=== PATIENT | female | born 1985 | race Caucasian/White ===

== ENCOUNTER 2020-09-23 09:44 | Outpatient (CLI) | payer BC, SELFPAY ==
[2020-09-23 10:26] LABS: Hematocrit 40.8 % (37.0-47.0); Hemoglobin 13.6 g/dL (12.0-15.0)
== END 2020-09-23 09:45 | disposition home or self-care (01) ==
PROVIDERS: PCP Internal Medicine; Visit Provider Obstetrics & Gynecology
DX: N89.9 Noninflammatory disorder of vagina, unspecified (principal)
CPT/HCPCS: 36415; 84443; 85014; 85018

== ENCOUNTER → 2020-10-27 01:08 | Outpatient (CLI) | payer BC, SELFPAY ==
[2020-10-27 17:24] LABS: SARS-CoV-2 RNA PCR Negative
== END ==
PROVIDERS: PCP Internal Medicine; Visit Provider Obstetrics & Gynecology
DX: Z01.812 Encounter for preprocedural laboratory examination (principal); Z20.822 Contact with and (suspected) exposure to COVID-19
CPT/HCPCS: C9803; U0003; U0005

== ENCOUNTER 2020-10-27 09:08 | Outpatient (CLI) | payer BC, SELFPAY ==
--- NOTE | 2020-10-27 08:45 | ECG_ITS ---
Measurements Intervals [place] Rate: 64 P: 4 NH: 137 QRS: -25 QRSD: 91 T: 29 QT: 417 QTc: 433 Interpretive Statements SINUS RHYTHM LEFT VENTRICULAR HYPERTROPHY AND ST-T CHANGE POOR R WAVE PROGRESSION, ANTERIOR LEADS MINIMAL Q WAVES- HIGH LATERAL LEADS BASELINE ARTIFACT- I, II, III, AVR, AVL, AVF BORDERLINE ECG Electronically Signed On 10-27-2020 10:14:08 CDT by Carlos Morales D.O.
[2020-10-27 10:08] LABS: Anion Gap 11 mmol/L (8-16); Blood Urea Nitrogen 9 mg/dL (7-17); Calcium 9.7 mg/dL (8.4-10.2); Carbon Dioxide 31 mmol/L (22-30); Chloride 99 mmol/L (98-107); Estimated Glomerular Filt Rate > 60; Glucose 105 mg/dL (65-105); Potassium 3.2 mmol/L (3.4-5.0); Sodium 141 mmol/L (137-145)
== END 2020-10-27 09:09 | disposition home or self-care (01) ==
LOC: ANHSURGERY 09:11
PROVIDERS: Anesthesiology; PCP Internal Medicine; Visit Provider Obstetrics & Gynecology
DX: Z01.818 Encounter for other preprocedural examination (principal); I10 Essential (primary) hypertension; Z79.899 Other long term (current) drug therapy
CPT/HCPCS: 36415; 80048; 93005

== ENCOUNTER 2020-10-30 00:08 | Day surgery (SDC) | payer BC, SELFPAY ==
[2020-10-26 10:24] VITALS: BMI 34.5
--- NOTE | 2020-10-28 06:36 | PM.IMHP ---
H&P: HPI History of Present Illness Date/Time: 10/28/20 06:36 35-year-old 1 para 1 admitted for laparoscopic tubal ligation / hysteroscopy / dilatation curettage/endometrial ablation. She has complaints of heavy bleeding and desires permanent and irreversible sterilization. She had trouble with an IUD. She declines pills patches implants or injections. Risks and benefits and per minutes were reviewed. She had all questions answered asked to proceed Chief Complaint: desires permanent sterilization and excessive heavy bleeding Review of Systems Review of Systems: All systems reviewed & are unremarkable except as noted in HPI and below [facility] Social History Social History Smoking status: Never smoker Alcohol intake: current Substance use: never Substance use type: does not use Additional living arrangements comments: SON Spiritual care concerns: No Meds Home Medications and Allergies Home Medications Medication Instructions Recorded Confirmed Type alprazolam 0.25 mg PO BID PRN 10/26/20 10/26/20 History duloxetine 60 mg PO DAILY 10/26/20 10/26/20 History hydrochlorothiazide 25 mg PO DAILY 10/26/20 10/26/20 History Allergies Allergy/AdvReac Type Severity Reaction Status Date / Time No Known Allergies Allergy Verified 10/26/20 10:23 Exam Const: General: no acute distress Eyes: General: appearance normal, both eyes and all related structures Neck: Neck: supple and no JVD Thyroid: thyroid normal Resp: Effort & Inspection: normal respiratory effort Auscultation: clear to auscultation bilaterally Cardio: Rate: regular rate Rhythm: regular rhythm GI: Inspection: non-distended GI Palp: Yes Soft to palpation, No Tenderness to palpation present (GI) and No Guarding due to palpation present (GI) Auscultation: normal bowel sounds : External Female Exam: normal external appearance Speculum Exam - Vagina: normal appearance of the vagina Speculum Exam - Cervix: normal appearance of the cervix Bimanual exam- vagina & uterus: enlarged Bimanual Exam- Adnexa, other: normal adnexae Skin: General skin exam: no rashes or lesions noted Extrem: General: normal to inspection and no edema Psych: Mental Status: mental status grossly normal Affect: normal affect Assessment and Plan Additional Plan impression: Bleeding and desires permanent sterilization Plan: Laparoscopic tubal ligation /hysteroscopy/ dilatation curettage/endometrial ablation
[2020-10-30] VITALS (11 sets, daily range): BP systolic 123–144; BP diastolic 85–97; PULSE 65–81; RESP 13–22; TEMP 36.2–36.3; O2SAT 93–100
--- NOTE | 2020-10-30 07:21 | WPDHPUPDATE1 ---
History and Physical Update Update Date/Time: 10/30/20 07:21 History and Physical has been reviewed, including an updated exam of the patient. There are NO changes in the patient's condition. Risks, benefits, and alternatives have been discussed and questions answered. Patient agrees to proceed with procedure.
--- NOTE | 2020-10-30 10:34 | P.PNAN_ITS ---
Anes - Initial Pre Proc Eval Procedure: Operation Date: 10/30/20 12:30 Proposed Procedures p Laparoscopic Bilateral Tubal Sterilization With Fallopian Rings, Hysteroscopy Dilatation And Curettage With Holly Ablation - Corwin Esparza MD Date/Time: 10/30/20 10:34 Surgeon: Corwin Esparza MD Pre Op Diagnosis: desires sterilization, menorrhagia Patient Data Age: 35 Gender: F Height: 1.6 m Weight: 88.45 kg Allergies Allergy/AdvReac Type Severity Reaction Status Date / Time No Known Allergies Allergy Verified 10/30/20 10:35 Home Medications Medication Instructions Recorded Confirmed Type alprazolam 0.25 mg PO BID PRN 10/26/20 10/30/20 History duloxetine 60 mg PO DAILY 10/26/20 10/30/20 History hydrochlorothiazide 25 mg PO DAILY 10/26/20 10/30/20 History hydrocodone-acetaminophen 1 tablet PO Q4H PRN #20 tablet 10/30/20 Rx Patient hx anesthesia problems: none Family hx anesthesia problems: none [facility] Past Medical History Medical History (Updated 10/30/20 @ 10:35 by Guilherme Ortiz MD) Anxiety Depression HTN (hypertension) Obesity Social History Social History Smoking status: Never smoker Alcohol intake: current Alcohol use details: RARE Substance use: never Substance use type: does not use Living arrangements: with family Additional living arrangements comments: SON Spiritual care concerns: No Anes - Eval Final PreProcedure Day of Procedure 10/30/20 10:34 Patient weight: overweight Heart: regular rate and rhythm Lungs: clear to auscultation and normal air movement Airway: Mallampati scale class II Neurological: alert and oriented Last oral intake: >/= 8 hours ASA classification: II Emergent: no Anesthetic plan: proceed Anesthesia type and monitoring: general ETT Informed Consent: The patient's anesthetic plan and its attendant risks and benefits were discussed with the patient/family/POA. Questions were solicited and answers provided to the satisfaction of the patient/family/POA.
[2020-10-30] MEDS: KETOROLAC 15 MG/ML VIAL (*BKC) IV PUSH (11:05)
[2020-10-30] MEDS: ACETAMINOPHEN 500 MG TABLET 1000 MG PO (11:05)
[2020-10-30] MEDS: LACTATED RINGERS 1,000 ML 30 ML IV CONT ×2 (11:05→12:59)
--- NOTE | 2020-10-30 12:57 | W.PM.PROC2 ---
Procedure Note - Detailed Date of Procedure 10/30/20 Pre-op Diagnosis desires sterilization, menorrhagia Post-op Diagnosis same Procedure Performed Laparoscopic bilateral tubal ligation with rings/hysteroscopy/dilatation curettage/endometrial ablation Surgeon Corwin Esparza MD Anesthesia general Indications This is a patient who desires permanent sterilization with excessive heavy bleeding Findings Normal-appearing uterus ovaries and tubes. Uterus sounded to 8cm with thick endometrium Description of Procedure Patient was prepped draped in the normal sterile fashion placed in the dorsal lithotomy position. Under excellent general endotracheal anesthesia weighted speculum was placed in the posterior fornix of vagina. Anterior lip of the cervix grasped with a single-tooth tenaculum and the Bowling's cannula inserted to the cervix. The 2 instruments were attached to be used for uterine manipulation. The bladder emptied of clear urine. The weighted speculum was removed. The gloves were changed. An infraumbilical incision made and the Veress needle passed in the abdomen. The abdomen filled with CO2 gas [id number]. The 5mm trocar advanced under direct visualization assuring no injury. Normal-appearing tubes ovaries and uterus were noted as well as appendix and liver edge. The right fallopian tube was grasped with a fallopian tube grasper and the ring placed in midportion. Blanching was seen in like fashion the left fallopian tube was grasped in a good knuckle of tube formed with the ring on the left. Blanching was noted. No other abnormalities were seen in the lower site removed. The gas removed from the abdomen. The trocars removed from the abdomen. After gas was completely emptied of the abdomen. The incisions closed with 4 Monocryl and glue. Attention was turned to the hysteroscopic portion. The uterus sounded to 9cm. Serial dilatation with fragmented dilators performed followed by passage of the 5mm visualizing hysteroscope using normal saline as visualizing medium. Thick endometrium was seen with normal appearing fallopian tube ostia bilaterally. No other abnormalities were seen. The uterus was scraped over the entire 360? until a good grating sound was heard. Following this the endometrial ablation device was placed in the uterus burned for 120seconds. This was then removed and hysteroscope reinserted. An excellent burn was noted in photo documentation undertaken. The instruments removed and the patient was awakened. All sponge, needle, instrument counts were correct. There were no immediate complications Implants Bilateral fallopian tube rings Estimated Blood Loss 5 Drains No Packing No Pathology yes Complications No immediate complications Condition stable Disposition floor
[2020-10-30] MEDS: fentaNYL CITRATE INJ (*CRX) 100 MCG/2 ML VIAL 25 MCG IV PUSH ×4 (13:19→13:41)
[2020-10-30] MEDS: HYDROmorphone HCL INJ (*CRX) 1 MG/ML SYR 0.25 MG IV PUSH ×6 (13:52→14:28)
[2020-10-30] MEDS: oxyCODONE HCL (*CRX) 5 MG TAB IR PO (14:52)
[2020-10-30] MEDS: ONDANSETRON INJ 4 MG/2 ML VIAL IV PUSH (15:02)
== END 2020-10-30 16:00 | disposition home or self-care (01) ==
PROVIDERS: PCP Internal Medicine; Visit Provider Obstetrics & Gynecology
PROC: 0UDB8ZZ Extraction of Endometrium, Via Natural or Artificial Opening Endoscopic (ICD-10-PCS; CPT 58558; principal; 2020-10-30 12:30)
DX: Z30.2 Encounter for sterilization (principal); N92.0 Excessive and frequent menstruation with regular cycle; F41.8 Other specified anxiety disorders; I10 Essential (primary) hypertension
CPT/HCPCS: 58563; 58671; 88305; A4264; A9270; J0330; J1100; J1170; J1885; J2250; J2405; J2704; J3010; J7030; J7120

== ENCOUNTER 2025-02-22 20:59 | Emergency (ER) | payer BC, SELFPAY ==
--- NOTE | ~2025-02-22 | CT_ITS ---
EXAMINATION: CT cervical spine wo con DATE: 02/22/2025 22:49 INDICATION: Neck pain. Injury. TECHNIQUE: Computed tomography (CT) of the cervical spine was performed without intravenous contrast. Automated exposure control and iterative reconstruction technique were employed. The dose-length product was 406.52 mGy-cm. COMPARISON: None FINDINGS: There is kyphosis of cervical spine. Vertebral body heights are normal. There is mildly decreased disc height at C4-C5, C5-C6, and C6-C7. There is multilevel facet joint osteoarthritis, severe bilaterally at C7-T1. There is no neural foraminal stenosis. There is mild central canal stenosis at C3-C4, C4- C5, and C6-C7. IMPRESSION: 1. No fracture. 2. Mild cervical spondylosis. Reviewed, dictated and finalized at location E.
--- NOTE | ~2025-02-22 | CT_ITS ---
EXAMINATION: CT brain wo con DATE: 02/22/2025 22:48 INDICATION: Head injury. TECHNIQUE: Computed tomography (CT) of the head was performed without intravenous contrast. The mA was adjusted according to patient size. Iterative reconstruction technique was employed. The dose-length product was 605.33 mGy-cm. COMPARISON: None FINDINGS: There is no intracranial hemorrhage, acute infarction, or abnormal intracranial mass lesion. The ventricles are normal in size. The orbits are normal. There is mild mucosal thickening in right sphenoid sinus. The mastoid air cells are normal. IMPRESSION: 1. Normal brain. Reviewed, dictated and finalized at location E. IMPRESSION: 1. Normal brain.
--- OUTSIDE RECORDS SUMMARY | 2025-02-22 21:01 | XMS_ITS | Encounter Summary ---
Author Organization [facility] Address [address] [place] [address] Phone Care Team Providers Care Machine Operations Supervisor Name Role Phone No, Physician Primary Care Provider [phone] Clinic, Search Consultant X. Primary Care Provider [phone] Anthony Yu MD Primary Care Provider [phone] Macario Degroot MD Unavailable Encounter Details Date Type Department Care Team (Latest Contact Info) Description 01/10/2017 Orders Only [facility] CONVERSION Scanning, Provider Social History Tobacco Use Types Packs/Day Years Used Date Smoking Tobacco: Never Comments Unknown Sex and Gender Information Value Date Recorded Sex Assigned at Not on file Legal Sex Female 10:03 AM CDT Gender Identity Not on file Sexual Orientation Not on file documented as of this encounter Plan of Treatment Not on file documented as of this encounter Procedures Procedure Name Priority Date/Time Associated Diagnosis Comments OBSTETRIC/GYNECOLOGY ULTRASONOGRAPHY REPORT 01/31/2017 10:04 AM CDT OBSTETRIC/GYNECOLOGY ULTRASONOGRAPHY REPORT 01/17/2017 10:03 AM CDT OBSTETRIC/GYNECOLOGY ULTRASONOGRAPHY REPORT 01/13/2017 9:27 AM CDT OBSTETRIC/GYNECOLOGY ULTRASONOGRAPHY REPORT 01/10/2017 10:54 AM CDT documented in this encounter Results * OBSTETRIC/GYNECOLOGY ULTRASONOGRAPHY REPORT (01/31/2017 10:04 AM CDT) Anatomical Region Laterality Modality Ultrasound us Provider Scanning IMG OB US PROCEDURES Final Res ult * OBSTETRIC/GYNECOLOGY ULTRASONOGRAPHY REPORT (01/17/2017 10:03 AM CDT) Anatomical Region Laterality Modality Ultrasound us Provider Scanning IMG OB US PROCEDURES Final Res ult * OBSTETRIC/GYNECOLOGY ULTRASONOGRAPHY REPORT (01/13/2017 9:27 AM CDT) Anatomical Region Laterality Modality Ultrasound us Provider Scanning IMG OB US PROCEDURES Final Res ult * OBSTETRIC/GYNECOLOGY ULTRASONOGRAPHY REPORT (01/10/2017 10:54 AM CDT) Anatomical Region Laterality Modality Ultrasound us Provider Scanning IMG OB US PROCEDURES Final Res ult documented in this encounter Visit Diagnoses Not on filedocumented in this encounter Care Teams Machine Operations Supervisor Relationship Specialty Start Date End Date No, Physician PCP - General 12/23/16 01/19/17 [facility], Search Consultant [address] [place] [address] PCP - General 01/20/17 09/05/18 Anthony Yu MD [facility] [address] [address] PCP - General Internal Medicine 09/06/18 Macario Degroot MD [address] [place] [id number] Consulting Physician Surgery 02/24/24 documented as of this encounter
--- OUTSIDE RECORDS SUMMARY | 2025-02-22 21:01 | XMS_ITS | Clinical Summary ---
Author Organization [facility] Address [address] [place] [address] Care Team Providers Care [facility] Attendant Name Role Phone Anthony Yu MD Primary Care Provider [phone] Macario Degroot MD Unavailable Allergies No known active allergies Medications oxyCODONE-acet aminophen (PERCOCET) 5-325 mg per tabletIndicati ons:Pain Take 1 tablet by mouth every 4 (four) hours as needed for pain 30 tablet 4 Active Additional Information Patient not taking.Reported on 03/06/2024 acetaminophen (TYLENOL) 325 mg tablet Take 2 tablets (650 mg total) by mouth every 6 (six) hours as needed for pain 4 Active docusate sodium (COLACE) 100 mg capsuleIndicat ions:constipat ion Take 1 capsule (100 mg total) by mouth daily as needed for constipation 20 capsule 4 Active Additional Information Patient not taking.Reported on 03/06/[address] (CYMBALTA) 60 mg capsule TAKE 1 CAPSULE(60 MG) BY MOUTH DAILY 30 capsule 5 Active busPIRone (BUSPAR) 15 mg tablet TAKE 1 TABLET(15 MG) BY MOUTH THREE TIMES DAILY 90 tablet 5 Active valsartan-hydr ochlorothiazid e (DIOVAN-HCT) 160-25 mg per tablet Take 1 tablet by mouth daily 30 tablet 5 025 Active valsartan-hydr ochlorothiazid e (DIOVAN-HCT) 160-25 mg per tablet TAKE 1 TABLET BY MOUTH DAILY 30 tablet 3 4 025 Discontin ued(Reord er) Active Problems Problem Noted Date Diagnosed Date Acute appendicitis with localized peritonitis Assessment & Plan (03/06/2024 2:16 PM CDT): Status post appendectomy. Patient is stable and she has follow-up with the surgeon Acute appendicitis, unspecified acute appendicit is type 02/21/2024 Anxiety 02/21/2024 Constipation 02/21/2024 Pain of right upper extremity 03/06/2023 Assessment & Plan (07/06/2023 4:49 PM MATTRESS FILLER): Resolved Assessment & Plan (03/06/2023 5:54 PM CDT): Patient with pain and tenderness in the right upper arm area. Could be muscle sprain. Advised to apply ice. Will start her on meloxicam 15 mg daily. Patient to call us in 1 month for persistent symptoms. Obesity (BMI 30-39.9) 11/02/2022 Assessment & Plan (01/04/2024 5:18 PM CDT): Continue low calorie diet and exercise on regular basis. We talked about medications. She likes to check with her insurance and see if it will be covered. We talked briefly about bariatric surgery and she wants to think about that as well. Assessment & Plan (11/02/2022 4:43 PM CDT): Continue low calorie diet and exercise on regular basis. We talked about medications. She likes to check with her insurance and see if it will be covered. We talked briefly about bariatric surgery and she wants to think about that as well. Sore throat 07/26/2022 Assessment & Plan (07/26/2022 12:34 PM CDT): Patient with strep throat. Will start her on amoxicillin 500 mg 3 times daily for 10 days and she will call for persistent symptoms. Hypertension, essential 07/05/2022 Assessment & Plan (01/04/2024 5:18 PM CDT): Controlled on Diovan hydrochlorothiazide Assessment & Plan (07/06/2023 4:48 PM MATTRESS FILLER): Controlled on Diovan hydrochlorothiazide Assessment & Plan (03/06/2023 5:53 PM CDT): Resume medications and low-salt diet and encouraged weight loss Assessment & Plan (11/02/2022 4:42 PM CDT): Continue current medications. Discussed low-salt diet. Discussed exercise on regular basis. Will continue to monitor Assessment & Plan (07/05/2022 12:30 PM MATTRESS FILLER): Stop hydrochlorothiazide and start Diovan hydrochlorothiazide 160-25 mg daily for better control of hypertension. Discussed low-salt diet and weight loss. Advised to keep follow-up appointments. History of kidney stones 12/05/2019 Assessment & Plan (12/05/2019 4:19 PM CDT): Patient had right kidney stone in August 2019. She is currently asymptomatic. 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 Vraylar was expensive so she did not start the medication. Patient said that she takes BuSpar 3 times daily and she feels much better. We will refill the medication Assessment & Plan (07/06/2023 4:49 PM MATTRESS FILLER): Patient with persistent symptoms of depression and anxiety. We will add Vraylar 1.5 mg daily. Continue duloxetine and BuSpar and call for persistent symptoms Assessment & Plan (03/06/2023 5:53 PM CDT): Continue current medications Assessment & Plan (11/02/2022 4:42 PM CDT): Controlled on BuSpar and duloxetine Assessment & Plan (07/05/2022 12:30 PM MATTRESS FILLER): Controlled on BuSpar and duloxetine Assessment & Plan (09/24/2021 9:19 AM CDT): Patient feels good with the Cymbalta but she has periods of anxiety. She said Xanax did not work. We will try BuSpar 15 mg b.i.d. p.r.n.. She will call for persistent symptoms Assessment & Plan (11/05/2020 2:42 PM CDT): Controlled on duloxetine and she takes Xanax as needed with good relief. Assessment & Plan (08/05/2020 2:38 PM CDT): Controlled on Cymbalta and will add Xanax 0.25 mg daily p.r.n. and side effects were explained. Assessment & Plan (04/02/2020 4:50 PM MATTRESS FILLER): Will stop Wellbutrin because of side effects including hypertension and headache. Patient will be started on Cymbalta 60 mg daily and she was advised to seek counseling and will evaluate her again in 1 month Assessment & Plan (03/05/2020 5:01 PM CDT): Will stop Viibryd because of weight gain. We will start her on Wellbutrin 300 mg daily and evaluate her again in 1 month. Side effects were explained. Hopefully that will help her lose few lb. Assessment & Plan (02/05/2020 3:53 PM CDT): We will stop Cymbalta and start her on Viibryd 40 mg daily and side effects were explained. Will evaluate her again in 1 month. Assessment & Plan (01/06/2020 3:03 PM CDT): She will continue with Cymbalta. She will call if she has any problem with the medication. Will evaluate her again in 1 month. Assessment & Plan (12/05/2019 4:20 PM CDT): Patient has recurrent depression. She will be started on Effexor XR 37.5 mg daily and will evaluate her again in 1 month. Side effects were explained. Acanthosis nigricans 09/06/2018 Assessment & Plan (12/05/2019 4:19 PM CDT): Resolved Assessment & Plan (09/14/2018 1:03 PM CDT): The most likely cause of her symptoms is the hormonal therapy. It was discontinued by the client services specialist. The patient was advised to continue to follow up on that and she is to call us in a few months if the lesions persist Assessment & Plan (09/06/2018 11:57 AM CDT): The patient gained a lot of weight in short period of time which could explain the symptoms. She will follow up with her client services specialist for possible removal of the IUD. Will obtain blood work to rule out other etiologies of the condition and see her again in few days Elevated blood pressure reading 09/06/2018 Assessment & Plan (09/24/2021 9:19 AM CDT): Continue low-salt diet and encouraged more weight loss with diet and exercise Assessment & Plan (11/05/2020 2:42 PM CDT): Stable and will continue hydrochlorothiazide. She will continue to watch her salt. She will continue to exercise on regular basis Assessment & Plan (08/05/2020 2:38 PM CDT): Continue hydrochlorothiazide Assessment & Plan (04/08/2020 9:04 AM MATTRESS FILLER): Blood pressure is mildly elevated. We will start her on hydrochlorothiazide 25 mg daily and we discussed low-salt diet and increasing water intake. Advised to work harder on losing weight. Will evaluate her again in few weeks. Assessment & Plan (04/02/2020 4:50 PM MATTRESS FILLER): Advised low-salt diet and weight loss. Blood pressure is high her which could be secondary to Wellbutrin Assessment & Plan (02/05/2020 3:53 PM CDT): Continue low-salt diet and exercise and encouraged weight loss Assessment & Plan (01/06/2020 3:02 PM CDT): Blood pressure is slightly elevated. We discussed low-salt diet. Patient lost weight and we encouraged to lose more weight. We discussed the ideal weight for her. Assessment & Plan (12/05/2019 4:19 PM CDT): Blood pressure is stable without medications. Continue low-salt diet Assessment & Plan (09/14/2018 1:04 PM CDT): Blood pressure improved with diet and weight loss and she was encouraged to continue with that Assessment & Plan (09/06/2018 11:59 AM CDT): Discussed low-salt diet and exercise on regular basis about 5 days a week for about 30 minutes each day. We discussed weight loss. Will continue to monitor Immunizations Immunization Administration Dates Next Due Influenza, Quadrivalent, Spl it, Preservative Free, Intramuscular 03/06/2023,07/05/2022,02/05/2020,02/19,02/07/2017 Influenza, Trivalent, Preser vative Free, Intramuscular 02/24/2024 Influenza, Unspecified 02/07/2017 Pfizer SARS-CoV-2 Monovalent Vaccination (12+ Yrs) PURPLE 08/22/2020,08/01/2020 Pneumococcal Polysaccharide PPV23 02/19/2019 Tdap 11/02/2022,02/07/2017,08/14/2015 Surgical History Surgery Date Site/Laterality Comments LOOP ELECTROSURGICAL EXCISION PROCEDURE Cervical Loop Electrosurgical Excision (LEEP) - 2005 (Added by TW Conv) TUBAL LIGATION 05/15/2020 - 05/14/2021 APPENDECTOMY 02/21/2024 Medical History Medical History Date Comments Other abnormal findings on a ntenatal screening of mother NST (non-stress test) nonrea ctive - (Added by TW Conv) Obesity complicating M aternal morbid obesity, antepartum - (Added by TW Conv) Supervision of high-risk High-risk supervision - (Added by TW Conv) Hypertension History of chicken pox Family History Medical History Relation Name Comments Diabetes Mother Cynthia Barajas Throat cancer Sister Throat cancer - (Added by TW Conv) Relation Name Status Comments Father Alive Mother LuMalik Parsrobin Alive Sister Social History Tobacco Use Types Packs/Day Years Used Date Smoking Tobacco: Never Smokeless Tobacco: Never Tobacco Cessation:Counseling Given: Not Answered Alcohol Use Standard Drinks/Week Comments Not Currently 0 (1 standard drink = 0.6 oz pur e alcohol) [facility] Utilities Answer Date Recorded In the past 12 months has e electric, gas, oil, or water company threatened to shut off services in your home? No 02/22/2024 Social Connection and Isolation Panel Answer Date Recorded In a typical week, how many times do you talk on the phone with family, friends, or neighbors? More than three times a week 02/22/2024 How often do you get togethe r with friends or relatives? More than three times a week 02/22/2024 How often do you attend chur ch or mosque services? Never 02/22/2024 Do you belong to any clubs o r organizations such as uatsdin groups, unions, fraternal or athletic groups, or school groups? No 02/22/2024 How often do you attend meet ings of the clubs or organizations you belong to? Never 02/22/2024 Are you , , di vorced, , never , or living with a partner? Never 02/22/2024 AUDIT-C Answer Date Recorded Q1: How often do you have a drink containing alcohol? Never 03/06/2024 Q2: How many drinks containi ng alcohol do you have on a typical day when you are drinking? Patient does not drink Q3: How often do you have si x or more drinks on one occasion? Never 03/06/2024 Overall Financial Resource Strain (CARDIA) Answe r Date Recorded How hard is it for you to pa y for the very basics like food, housing, medical care, and heating? Not very hard 02/22/2024 PHQ-2 Answer Date Recorded PHQ-2 Total Score (If total score is 3 or more points, staff should administer the PHQ-9) 0 03/06/2024 Hunger Vital Sign Answer Date Recorded Within the past 12 months, y ou worried that your food would run out before you got the money to buy more. Never true 02/22/20 24 Within the past 12 months, t he food you bought just didn't last and you didn't have money to get more. Never true 02/22/2024 PRAPARE - Transportation Answer Date Re corded In the past 12 months, has l ack of transportation kept you from medical appointments or from getting medications? No 02/12 In the past 12 months, has l ack of transportation kept you from meetings, work, or from getting things needed for daily living? No 02/22/2024 Housing Stability Vital Sign Answer Martin e Recorded In the last 12 months, was t here a time when you were not able to pay the mortgage or rent on time? No 02/22/2024 In the past 12 months, how m any times have you moved where you were living? 0 02/22/2024 At any time in the past 12 m [facility], were you homeless or living in a senior living (including now)? No 02/22/2024 Personal Safety Answer Date Recorded Have you ever been in or are you currently in a harmful physical or emotional relationship or is someone making you feel afraid or unsafe? Denies 02/21/2024 Comments Unknown Sex and Gender Information Value Date Recorded Sex Assigned at Not on file Legal Sex Female 10:03 AM CDT Gender Identity Not on file Sexual Orientation Not on file Obstetrics History Last Filed Vital Signs Vital Sign Reading Time Taken Comments Blood Pressure 120/78 03/06/2024 1:50 PM CDT Pulse 78 03/06/2024 1:50 PM CDT Temperature 36.7 C (98 F) 03/06/2024 1:50 PM CDT Respiratory Rate 16 03/06/2024 1:50 PM CDT Oxygen Saturation 98% 03/06/2024 1:50 PM CDT Inhaled Oxygen Concentration - - Weight 89.4 kg (197 lb) 03/06/2024 1:50 PM CDT Height 160 cm (5' 3) 03/06/2024 1:50 PM CDT Body Mass Index 34.9 03/06/2024 1:50 PM CDT Plan of Treatment Health Maintenance Due Date Last Done Comments Breast Cancer Screening-Mammogram 1984 Hepatitis C Screening 1984 Hepatitis B Screening 2002 Regular Well Visit/Exam 18-64 2002 HPV Vaccines (1 - 3-dose SCDM series) 2011 Cervical Cancer Screening 07/29/2018 07/29/2017 Covid-19 Vaccine ( - season) 2025 08/22/2020, 08/01/2020 Influenza Vaccine (#1) 2025 , 03/06/2023, 07/05/2022, Additional history exists Depression Screening 03/06/2025 03/06/2024, 01/04/2024, 07/06/2023, Additional history exists DTaP/Tdap/Td Vaccine (4 - Td or Tdap) 11/02/2032 11/02/2022, 02/07/2017, 08/14/2015 Pneumococcal vaccine <65 Aged Out 02/19/2019 No longer eligible based on patient's age to complete this topic Procedures Procedure Name Priority Date/Time Associated Diagnosis Comments PAP SMEAR WITH HPV Routine 07/29/2017 from Last 3 Months or Most Recently Relevant to Health Maintenance Results * PAP SMEAR WITH HPV (07/29/2017) Pap smear Normal Historical Provider HEALTH MAINTENANCE Final Result from Last 3 Months or Most Recently Relevant to Health Maintenance Insurance Advance Directives For more information, please contact: [phone] * Full Code (Latest Code Status on File) Date Activated Date Inactivated Comments 02/21/2024 2:23 PM 02/24/2024 3:12 PM Care Teams [facility] Attendant Relationship Specialty Start Date End Date Anthony Yu MD [address] [place] [id number] PCP - General Internal Medicine 09/06/18 Macario Degroot MD [address] [address] Consulting Physician Surgery 02/24/24
--- OUTSIDE RECORDS SUMMARY | 2025-02-22 21:01 | XMS_ITS | Clinical Summary ---
Author Organization [facility] Address [address] [place] [address] Care Team Providers Care Route Clerk Name Role Phone None, Provider MD Primary Care Provider Unavaila ble Allergies No known active allergies Medications oxyCODONE-acetamino phen (PERCOCET) 5-325 MG tabletIndications:A cute Pain < 3 Day Supply Take 1-2 tablets by mouth every 6 (six) hours as needed for Pain. Indications: Acute Pain < 3 Day Supply 12 tablet 0 Active tamsulosin 0.4 MG Cap Take 1 capsule (0.4 mg total) by mouth daily. 30 capsule 0 Active ondansetron 4 MG disintegrating tablet Take 1 tablet (4 mg total) by mouth every 8 (eight) hours as needed for Nausea. 15 tablet 0 Active HYDROcodone-acetami nophen 5-325 MG tabletIndications:A cute Pain < 7 Day Supply Take 1 tablet by mouth every 6 (six) hours as needed. Indications: Acute Pain < 7 Day Supply 14 tablet 0 Active Family History Medical History Relation Comments Diabetes Mother Cancer Sister Relation Status Comments Mother Sister Social History Tobacco Use Types Packs/Day Years Used Date Smoking Tobacco: Never Smokeless Tobacco: Never Alcohol Use Standard Drinks/Week Comments Never 0 (1 standard drink = 0.6 oz pur e alcohol) AUDIT-C Answer Date Recorded Frequency of Alcohol Consumption Never 09/08/2019 Average Number of Drinks Not on file 020 Frequency of Binge Drinking Not on file 08/14 Comments Yes Sex and Gender Information Value Date Recorded Sex Assigned at Not on file Legal Sex Female 7:37 PM CDT Gender Identity Not on file Sexual Orientation Not on file Last Filed Vital Signs Vital Sign Reading Time Taken Comments Blood Pressure 133/80 09/10/2019 4:00 PM CDT Pulse 89 09/10/2019 4:00 PM CDT Temperature 36.5 C (97.7 F) 09/10/2019 1:38 PM CDT Respiratory Rate 18 09/10/2019 4:00 PM CDT Oxygen Saturation 100% 09/10/2019 4:00 PM CDT Inhaled Oxygen Concentration - - Weight 88 kg (194 lb) 09/10/2019 1:38 PM CDT Height 160 cm (5' 3) 09/10/2019 1:38 PM CDT Body Mass Index 34.37 09/10/2019 1:38 PM CDT Plan of Treatment Health Maintenance Due Date Last Done Comments Cervical Cancer Screening Pa p Smear (Age 30 to 64) Every 3 Years 1984 Annual Physical 1987 Hepatitis C 2002 DTaP, Tdap and Td Vaccines ( 1 - Tdap) 2003 Hepatitis B Vaccines (1 of 3 - 19+ 3-dose series) 2003 HPV Vaccines (1 - 3-dose SCD M series) 2011 Cervical Cancer Screening Pa p with HPV Testing (Age 30 to 64) Every 5 Years 2014 Cervical Cancer Screening with HPV 2014 Mammogram Screening 2024 COVID-19 Vaccine (2023-2 5 season) 2025 Influenza Adult (#1) 2025 02/07/2017 RSV Immunization or 60+ Years (1 - 1-dose 75+ series) 2059 Meningococcal B Vaccine Aged Out No l onger eligible based on patient's age to complete this topic Meningococcal Vaccine Aged Out No amelia leydi eligible based on patient's age to complete this topic Pneumococcal Vaccine: Pediat rics (0 to 5 Years) and At-Risk Patients (6 to 49 Years) Aged Out No longer eligi ble based on patient's age to complete this topic RSV Immunizations Under 20 Months Aged Out No longer eligible based on patient's age to complete this topic Care Teams Route Clerk Relationship Specialty Start Date End Date None, Provider, PCP - General 09/10/19
--- OUTSIDE RECORDS SUMMARY | 2025-02-22 21:01 | XMS_ITS | Encounter Summary ---
Author Organization [facility] Address [address] [place] [address] Phone Care Team Providers Care Creative Services Producer Name Role Phone Clinic, Inspector [employer]uminum Boat X. Primary Care Provider [phone] Anthony Yu MD Primary Care Provider [phone] Macario Degroot MD Unavailable [phone] Encounter Details Date Type Department Care Team (Latest Contact Info) Description 02/10/2017 Orders Only [facility] CONVERSION Scanning, Provider Social [...] Date/Time Associated Diagnosis Comments OBSTETRIC/GYNECOLOGY ULTRASONOGRAPHY REPORT 03/10/2017 10:02 AM CDT OBSTETRIC/GYNECOLOGY ULTRASONOGRAPHY REPORT 02/10/2017 4:04 PM CDT documented in this encounter Results * OBSTETRIC/GYNECOLOGY ULTRASONOGRAPHY REPORT (03/10/2017 10:02 AM CDT) Anatomical Region Laterality Modality Ultrasound us Provider Scanning IMG OB US PROCEDURES Final Res ult * OBSTETRIC/GYNECOLOGY ULTRASONOGRAPHY REPORT (02/10/2017 4:04 PM CDT) Anatomical Region Laterality Modality Ultrasound us Provider Scanning IMG OB US PROCEDURES Final Res ult documented in this encounter Visit Diagnoses Not on filedocumented in this encounter Care Teams Creative Services Producer Relationship Specialty Start Date End Date Clinic, Inspector [employer] [address] [place] [address] PCP - General 01/20/17 09/05/18 Anthony Yu MD [address] [address] PCP - General Internal Medicine 09/06/18 Macario Degroot MD [address] [place] [id number] Consulting Physician Surgery 02/24/24 documented as of this encounter
--- OUTSIDE RECORDS SUMMARY | 2025-02-22 21:01 | XMS_ITS | Encounter Summary ---
Author Organization [facility] Address [address] [place] [address] Phone Care Team Providers Care Sunglass Clip Attacher Name Role Phone Unknown, Notinfile Primary Care Provider Unavail able No, Physician Primary Care Provider [phone] Clinic, Clinical Research Manager X. Primary Care Provider Anthony Yu MD Primary Care Provider Macario Degroot MD Unavailable [phone] Encounter Details Date Type Department Care Team (Latest Contact Info) Description 11/04/2016 Orders Only [facility] CONVERSION Scanning, Provider Social [...] Date/Time Associated Diagnosis Comments OBSTETRIC/GYNECOLOGY ULTRASONOGRAPHY REPORT 11/04/2016 1:55 PM CDT documented in this encounter Results * OBSTETRIC/GYNECOLOGY ULTRASONOGRAPHY REPORT (11/04/2016 1:55 PM CDT) Anatomical Region Laterality Modality Ultrasound us Provider Scanning IMG OB US PROCEDURES Final Res ult documented in this encounter Visit Diagnoses Not on filedocumented in this encounter Care Teams Sunglass Clip Attacher Relationship Specialty Start Date End Date Unknown, Notinfkrista PCP - General 10/03/16 12/22/16 No, Physician PCP - General 12/23/16 01/19/17 [facility], Clinical Research Manager X. [address] [place] [address] PCP - General 01/20/17 09/05/18 Anthony Yu MD [address] [address] PCP - General Internal Medicine 09/06/18 Macario Degroot MD [address] [place] [address] Consulting Physician Surgery 02/24/24 documented as of this encounter
[2025-02-22 21:03] VITALS: BP 143/92; PULSE 95; RESP 16; TEMP 37.3; O2SAT 100
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
[2025-02-22] MEDS: SODIUM CHLORIDE 0.9% IV 1,000 ML 999 ML IV CONT (22:28)
[2025-02-22] MEDS: METOCLOPRAMIDE HCL INJ 10 MG/2 ML VIAL IV PUSH (22:28)
[2025-02-22] MEDS: dexAMETHasone SOD PHOS INJ 10 MG/ML 1 ML VIAL IM (22:28)
[2025-02-22 23:21] VITALS: BP 130/88; PULSE 84; RESP 16; O2SAT 96
[2025-02-22 23:54] VITALS: BP 124/95; PULSE 88; RESP 17; O2SAT 97
[2025-02-23] MEDS: KETOROLAC 15 MG/ML VIAL (*BKC) IV PUSH
== END 2025-02-23 00:07 | disposition home or self-care (01) ==
PROVIDERS: Emergency Provider Registered Nurse; PCP Internal Medicine
DX: S06.0X0A Concussion without loss of consciousness, initial encounter (principal); S16.1XXA Strain of muscle, fascia and tendon at neck level, initial encounter; I10 Essential (primary) hypertension; F41.9 Anxiety disorder, unspecified; F32.A Depression, unspecified; Y93.51 Activity, roller skating (inline) and skateboarding; V00.121A Fall from non-in-line roller-skates, initial encounter; Z79.899 Other long term (current) drug therapy
CPT/HCPCS: 70450; 72125; 96361; 96372; 96374; 96375; 99284; J1100; J1200; J1885; J2765; J7030